=== PATIENT | male | born 1960 | race Caucasian/White ===

== ENCOUNTER 2016-11-05 10:57 | Emergency (ER) | payer MEDICAID ==
[~2016-11-05] VITALS: Ht 177.8 cm; Wt 65.8 kg
[~2016-11-05 10:57] MED LIST: AMIT PO; DIA2T; GABA300C; HYDR-3682; IBUP800T41; LAM100T OR; OME20GT; RISP1TAB60 PO; VENL25TA2 PO
[2016-11-05 11:58] LABS: Basophils # (auto) 0 uL; Basophils % (auto) 0.5 % (0.0-2.0); CONDITION Y; Eosinophils # (auto) 0.2 uL; Eosinophils % (auto) 3.1 % (0.0-7.0); Hematocrit 47.6 % (41.0-53.0); Hemoglobin 16.1 g/dL (13.5-17.5); Lymphocytes # (auto) 2.7 uL; Lymphocytes % (auto) 37.1 % (10.0-50.0); Mean Corpuscular Hemoglobin 33.3 pg (28.0-32.0); Mean Corpuscular Hgb Conc. 33.8 g/dL (32.0-36.0); Mean Corpuscular Volume 98.4 fL (80.0-100.0); Mean Platelet Volume 8.2 fL (7.4-10.4); Monocytes # (auto) 0.5 uL; Monocytes % (auto) 6.9 % (0.0-12.0); Neutrophils # (auto) 3.8 uL; Neutrophils % (auto) 52.4 % (37.0-80.0); Platelet Count (auto) 172 10^3/uL (140-450); Red Cell Distribution Width 13.2 % (11.6-16.0); White Blood Cell 7.2 10^3/uL (4.4-10.8)
[2016-11-05 12:37] LABS: BUN/Creatinine Ratio 18.3; Potassium 4.3 mmol/L (3.5-5.1)
[2016-11-05] MEDS ORDERED: ALUM & MAG HYDROX-SIMETH LIQ(MAALOX) 30 ML PO ONE (16:15)
[2016-11-05 17:08] VITALS: BP 99/65
== END 2016-11-05 17:14 | disposition home or self-care (01) ==
LOC: ER 10:57
DX: K20.9 Esophagitis, unspecified (principal); F17.210 Nicotine dependence, cigarettes, uncomplicated; F12.10 Cannabis abuse, uncomplicated; M19.90 Unspecified osteoarthritis, unspecified site; Z88.3 Allergy status to other anti-infective agents; Z90.89 Acquired absence of other organs
CPT/HCPCS: 36415; 74176; 80048; 82150; 83690; 85025; 93005

== ENCOUNTER 2017-03-29 15:43 | Emergency (ER) | payer MEDICAID ==
[~2017-03-29] VITALS: Ht 177.8 cm; Wt 65.8 kg
[2017-03-29 15:52] VITALS: BP 113/75
[2017-03-29] MEDS ORDERED: traMADol HCL 50 MG TAB PO ONE (16:45)
== END 2017-03-29 16:17 | disposition home or self-care (01) ==
LOC: ER 15:43
DX: L03.311 Cellulitis of abdominal wall (principal); F17.210 Nicotine dependence, cigarettes, uncomplicated

== ENCOUNTER 2017-04-01 15:42 | Emergency (ER) | payer MEDICAID ==
[~2017-04-01] VITALS: Ht 177.8 cm; Wt 65.8 kg
[2017-04-01 16:02] VITALS: BP 121/79
== END 2017-04-01 16:18 | disposition home or self-care (01) ==
LOC: ER 15:44
DX: L03.311 Cellulitis of abdominal wall (principal); F17.210 Nicotine dependence, cigarettes, uncomplicated

== ENCOUNTER 2017-06-28 14:45 | Emergency (ER) | payer MEDICAID ==
[~2017-06-28] VITALS: Ht 177.8 cm; Wt 65.8 kg
[2017-06-28 15:05] VITALS: BP 97/68
== END 2017-06-28 17:20 | disposition home or self-care (01) ==
LOC: ER 14:45
DX: M79.675 Pain in left toe(s) (principal); M19.90 Unspecified osteoarthritis, unspecified site; F17.210 Nicotine dependence, cigarettes, uncomplicated; Z90.49 Acquired absence of other specified parts of digestive tract; Z88.8 Allergy status to other drugs, medicaments and biological substances; Z79.899 Other long term (current) drug therapy

== ENCOUNTER 2018-01-21 14:05 | Emergency (ER) | payer MEDICAID ==
[~2018-01-21] VITALS: Ht 177.8 cm; Wt 59.0 kg
[2018-01-21] MEDS ORDERED: SODIUM CHLORIDE 0.9% 1,000 ML IVB ONE (14:22)
[2018-01-21] MEDS ORDERED: PANTOPRAZOLE 40 MG/10 ML VIAL IV STA (14:22)
[2018-01-21] MEDS ORDERED: ONDANSETRON HCL 4 MG/2 ML VIAL IV ONE (14:30)
[2018-01-21] MEDS ORDERED: MORPHINE SULFATE 4 MG/ML SYR/VIAL IV ONE (14:30)
[2018-01-21 16:25] LABS: Basophils # (auto) 0 uL; Basophils % (auto) 0.4 % (0.0-2.0); Eosinophils # (auto) 0.1 uL; Hemoglobin 16.3 g/dL (13.5-17.5); Lymphocytes # (auto) 2.8 uL; Nucleated Red Blood Cells % 0.1 %; Red Blood Cells 4.68 10^6/uL (4.5-5.90)
[2018-01-21 16:28] LABS: Eosinophils % (auto) 1.2 % (0.0-7.0); Hematocrit 46.2 % (41.0-53.0); Lymphocytes % (auto) 32.3 % (10.0-50.0); Mean Corpuscular Hemoglobin 34.9 pg (28.0-32.0); Mean Corpuscular Hgb Conc. 35.3 g/dL (32.0-36.0); Mean Corpuscular Volume 98.8 fL (80.0-100.0); Monocytes # (auto) 0.5 uL; Monocytes % (auto) 6.2 % (0.0-12.0); Neutrophils # (auto) 5.2 uL; Neutrophils % (auto) 59.9 % (37.0-80.0); Platelet Count (auto) 168 10^3/uL (140-450); Red Cell Distribution Width 12.5 % (11.8-14.3); White Blood Cell 8.6 10^3/uL (4.4-10.8)
[2018-01-21 16:34] LABS: Potassium 3.8 mmol/L (3.5-5.1)
[2018-01-21 16:38] LABS: BUN/Creatinine Ratio 23.5; Calcium 8.5 mg/dL (8.5-10.1)
[2018-01-21 16:41] LABS: Bilirubin, Total 0.7 mg/dL (0.2-1.0); Total Protein 7.9 g/dL (6.4-8.2)
[2018-01-21 18:09] VITALS: BP 123/68
== END 2018-01-21 17:01 | disposition home or self-care (01) ==
LOC: ER 14:05
DX: F12.188 Cannabis abuse with other cannabis-induced disorder (principal); R11.10 Vomiting, unspecified; M19.90 Unspecified osteoarthritis, unspecified site; F17.210 Nicotine dependence, cigarettes, uncomplicated; Z79.899 Other long term (current) drug therapy
CPT/HCPCS: 36415; 80053; 82150; 83690; 85025; 93005; 94761

== ENCOUNTER 2018-10-19 19:46 | Inpatient (IN) | payer MEDICAID | END 2018-10-23 15:35 | disposition home or self-care (01) | LOC: TELE 10-20 02:26 → TELE-WESTW 10-21 14:41 → DOU IN ICU 10-20 13:14 → ER 19:46 | DX: K66.1 Hemoperitoneum (principal); K70.30 Alcoholic cirrhosis of liver without ascites; R19.09 Other intra-abdominal and pelvic swelling, mass and lump ==

== ENCOUNTER 2019-01-20 06:35 | Emergency (ER) | payer MEDICAID ==
[~2019-01-20] VITALS: Ht 177.8 cm; Wt 65.8 kg
[2019-01-20 06:50] VITALS: BP 98/66
[2019-01-20] MEDS ORDERED: KETOROLAC TROMETH 60MG/2ML VIAL IM ONE (08:00)
== END 2019-01-20 08:11 | disposition home or self-care (01) ==
LOC: ER 06:40
DX: M70.61 Trochanteric bursitis, right hip (principal); F17.210 Nicotine dependence, cigarettes, uncomplicated; F12.10 Cannabis abuse, uncomplicated; Z88.1 Allergy status to other antibiotic agents; Z79.899 Other long term (current) drug therapy; Y93.H3 Activity, building and construction
CPT/HCPCS: 73502; 96372; 99283; J1885

== ENCOUNTER 2020-10-21 07:00 | Emergency (ER) | payer MEDICAID ==
[~2020-10-21] VITALS: Ht 177.8 cm; Wt 61.2 kg
[~2020-10-21 07:00] MED LIST changes: -AMIT PO; +AMIT10TA8 PO; +RISP1TAB33 PO; -RISP1TAB60 PO; -VENL25TA2 PO; +VENL25TA33 PO
[2020-10-21] MEDS ORDERED: METHOCARBAMOL 500 MG TAB PO ONE (08:15)
[2020-10-21 09:54] VITALS: BP 118/78
== END 2020-10-21 09:58 | disposition home or self-care (01) ==
LOC: ER 07:00
DX: M54.12 Radiculopathy, cervical region (principal); F17.210 Nicotine dependence, cigarettes, uncomplicated; F12.10 Cannabis abuse, uncomplicated; Z88.6 Allergy status to analgesic agent
CPT/HCPCS: 72040

== ENCOUNTER 2020-10-30 20:10 | Emergency (ER) | payer MEDICAID ==
[~2020-10-30] VITALS: Ht 177.8 cm; Wt 65.8 kg
[2020-10-30] MEDS ORDERED: ONDANSETRON HCL 4 MG/2 ML VIAL IV ONE (20:45)
[2020-10-30] MEDS ORDERED: SODIUM CHLORIDE 0.9% 2,000 ML IV ONE (20:45)
[2020-10-30 21:15] LABS: Basophils # (auto) 0.1 10 ^3/uL (0-0.2); Eosinophils # (auto) 0.1 10 ^3/uL (0-0.8); Lymphocytes # (auto) 2.1 10 ^3/uL (0.4-5.4); Monocytes # (auto) 1.1 10 ^3/uL (0-1.3); Neutrophils # (auto) 9.7 10 ^3/uL (1.6-8.6); Red Cell Distribution Width 12.7 % (11.8-14.3); White Blood Cell 13.1 10^3/uL (4.4-10.8)
[2020-10-30 21:17] LABS: Basophils % (auto) 0.7 % (0.0-2.0); Eosinophils % (auto) 0.8 % (0.0-7.0); Hemoglobin 17.5 g/dL (13.5-17.5); Lymphocytes % (auto) 15.9 % (10.0-50.0); Mean Corpuscular Hemoglobin 34.5 pg (28.0-32.0); Mean Corpuscular Hgb Conc. 35.1 g/dL (32.0-36.0); Mean Corpuscular Volume 98.5 fL (80.0-100.0); Monocytes % (auto) 8.5 % (0.0-12.0); Neutrophils % (auto) 74.1 % (37.0-80.0); Platelet Count (auto) 239 10^3/uL (140-450); Red Blood Cells 5.08 10^6/uL (4.5-5.90)
[2020-10-30 21:28] LABS: Albumin 4.7 g/dL (3.4-5.0); Amylase 64 U/L (25-115); Anion Gap 10 (5-15); Blood Urea Nitrogen 29 mg/dL (7-18); Calcium 9.8 mg/dL (8.5-10.1); Carbon Dioxide 23 mmol/L (21-32); Chloride 101 mmol/L (98-107); GFR African American 75 mL/min; GFR Non-African American 62 mL/min; Glucose 78 mg/dL (74-106); Lipase 62 U/L (73-393); Magnesium 2.2 mg/dL (1.6-2.6); Potassium 4.6 mmol/L (3.5-5.1); Sodium 134 mmol/L (136-145)
[2020-10-30 21:34] LABS: Alanine Aminotransferase 43 U/L (16-61); Alkaline Phosphatase 81 U/L (45-117); Aspartate Aminotransferase 42 U/L (15-37); Bilirubin, Total 0.8 mg/dL (0.2-1.0); Total Protein 9.1 g/dL (6.4-8.2)
[2020-10-31 03:29] VITALS: BP 132/84
== END 2020-10-31 03:32 | disposition home or self-care (01) ==
LOC: ER 20:11
DX: T67.5XXA Heat exhaustion, unspecified, initial encounter (principal); E86.0 Dehydration; R10.84 Generalized abdominal pain; F17.210 Nicotine dependence, cigarettes, uncomplicated; F10.20 Alcohol dependence, uncomplicated; Z79.899 Other long term (current) drug therapy; Z88.1 Allergy status to other antibiotic agents; Z88.8 Allergy status to other drugs, medicaments and biological substances; Y90.9 Presence of alcohol in blood, level not specified; X58.XXXA Exposure to other specified factors, initial encounter; Y93.89 Activity, other specified; Y92.89 Other specified places as the place of occurrence of the external cause; Y99.8 Other external cause status
CPT/HCPCS: 36415; 80053; 82150; 83690; 83735; 84484; 85025; 93005; 96361; 96374; 99284; J2405; J7030

== ENCOUNTER 2021-06-08 15:36 | Emergency (ER) | payer MEDICAID ==
[~2021-06-08] VITALS: Ht 177.8 cm; Wt 57.6 kg
[2021-06-08 16:13] LABS: Urine WBC None Seen /hpf (0 - 3)
[2021-06-08 16:33] LABS: Urine Bacteria NONE SEEN /hpf (None Seen); Urine Blood Negative /uL (Negative); Urine Specific Gravity 1.023 (1.001-1.035)
[2021-06-08 17:46] LABS: Hemoglobin 17.4 g/dL (13.5-17.5); Red Cell Distribution Width 12.2 % (11.8-14.3)
[2021-06-08 17:51] LABS: Basophils # (auto) 0.1 10 ^3/uL (0-0.2); Basophils % (auto) 0.7 % (0.0-2.0); Eosinophils # (auto) 0.1 10 ^3/uL (0-0.8); Eosinophils % (auto) 1.4 % (0.0-7.0); Hematocrit 49.9 % (41.0-53.0); Lymphocytes # (auto) 2.2 10 ^3/uL (0.4-5.4); Lymphocytes % (auto) 21.9 % (10.0-50.0); Mean Corpuscular Hemoglobin 33.6 pg (28.0-32.0); Mean Corpuscular Hgb Conc. 34.9 g/dL (32.0-36.0); Mean Corpuscular Volume 96.3 fL (80.0-100.0); Monocytes # (auto) 1.1 10 ^3/uL (0-1.3); Monocytes % (auto) 11.4 % (0.0-12.0); Neutrophils # (auto) 6.4 10 ^3/uL (1.6-8.6); Neutrophils % (auto) 64.6 % (37.0-80.0); Red Blood Cells 5.18 10^6/uL (4.5-5.90); White Blood Cell 9.9 10^3/uL (4.4-10.8)
[2021-06-08 17:56] LABS: Albumin 3.9 g/dL (3.4-5.0); Calcium 9.3 mg/dL (8.5-10.1); Potassium 4.6 mmol/L (3.5-5.1)
[2021-06-08 18:01] LABS: Bilirubin, Total 0.2 mg/dL (0.2-1.0); Total Protein 7.6 g/dL (6.4-8.2)
[2021-06-08] MEDS ORDERED: HYDR-4902 PO (19:14)
[2021-06-08 20:00] VITALS: BP 133/84
== END 2021-06-08 20:01 | disposition home or self-care (01) ==
LOC: ER 15:40
DX: K82.9 Disease of gallbladder, unspecified (principal); R16.0 Hepatomegaly, not elsewhere classified; F17.210 Nicotine dependence, cigarettes, uncomplicated; J44.9 Chronic obstructive pulmonary disease, unspecified; Z90.89 Acquired absence of other organs; Z79.1 Long term (current) use of non-steroidal anti-inflammatories (NSAID); Z79.899 Other long term (current) drug therapy; Z88.8 Allergy status to other drugs, medicaments and biological substances
CPT/HCPCS: 36415; 71046; 74176; 80053; 81001; 83690; 84484; 85025; 93005

== ENCOUNTER 2022-04-22 12:44 | Inpatient (IN) | payer MEDICAID ==
[~2022-04-22] VITALS: Ht 154.9 cm; Wt 53.0 kg
[~2022-04-22 12:44] MED LIST changes: +HYDR-4902 PO
[2022-04-22 14:15] LABS: Urine Bacteria FEW /hpf (None Seen); Urine Blood Negative /uL (Negative); Urine Specific Gravity 1.018 (1.001-1.035); Urine Sperm PRESENT /hpf (None Seen); Urine WBC 1 /hpf (0 - 3)
[2022-04-22 14:33] LABS: Basophils # (auto) 0.1 10 ^3/uL (0-0.2); Basophils % (auto) 0.6 % (0.0-2.0); Eosinophils # (auto) 0 10 ^3/uL (0-0.8); Eosinophils % (auto) 0.2 % (0.0-7.0); Hematocrit 47.6 % (41.0-53.0); Hemoglobin 15.9 g/dL (13.5-17.5); Lymphocytes # (auto) 1.5 10 ^3/uL (0.4-5.4); Lymphocytes % (auto) 13.6 % (10.0-50.0); Mean Corpuscular Hemoglobin 31.1 pg (28.0-32.0); Mean Corpuscular Hgb Conc. 33.3 g/dL (32.0-36.0); Mean Corpuscular Volume 93.3 fL (80.0-100.0); Monocytes # (auto) 1.4 10 ^3/uL (0-1.3); Monocytes % (auto) 12.6 % (0.0-12.0); Neutrophils # (auto) 8.3 10 ^3/uL (1.6-8.6); Red Cell Distribution Width 12.6 % (11.8-14.3); White Blood Cell 11.3 10^3/uL (4.4-10.8)
[2022-04-22 14:53] LABS: Albumin 3.2 g/dL (3.4-5.0); BUN/Creatinine Ratio 14.6; Calcium 8.8 mg/dL (8.5-10.1); Potassium 4.1 mmol/L (3.5-5.1)
[2022-04-22 15:05] LABS: Bilirubin, Total 0.8 mg/dL (0.2-1.0); Total Protein 7.4 g/dL (6.4-8.2)
[2022-04-22] MEDS ORDERED: LORazepam 2MG/ML-1ML VIAL IV PRN (17:30)
[2022-04-22] MEDS ORDERED: cefTRIAXone 1GM/50ML D5W 50 ML IV ONE (17:30)
[2022-04-22] MEDS ORDERED: PANTOPRAZOLE 40 MG/10 ML VIAL INJ IV ONE (17:30)
[2022-04-22] MEDS ORDERED: metroNIDAZOLE 500MG/100ML 100 ML IV ONE (17:30)
[2022-04-22] MEDS ORDERED: MORPHINE SULFATE INJ 2 MG/ml SYRG IV PRN (17:30)
[2022-04-22 18:18] LABS: Cholesterol 100 mg/dL (< 200); Triglycerides 40 mg/dL (< 150)
[2022-04-22 18:20] LABS: HDL Cholesterol 50 mg/dL (40-59); LDL Cholesterol 41 mg/dL (< 100)
[2022-04-22 18:22] LABS: INR 1.12 (0.9-1.15)
[2022-04-22] MEDS: SODIUM CHLORIDE 0.9% 1,000 ML IV SCH (18:31)
[2022-04-22] MEDS: ONDANSETRON HCL 4 MG/2 ML VIAL IV PRN (19:32)
[2022-04-22] MEDS: metroNIDAZOLE 500MG/100ML 100 ML IV SCH (20:00)
[2022-04-22 20:01] LABS: Amphetamine Screen, Urine NEGATIVE (NEGATIVE); Barbiturate Scree,Urine NEGATIVE (NEGATIVE); Benzodiazephine Screen, Urine NEGATIVE (NEGATIVE); Cannabinoid Screen, Urine POSITIVE (NEGATIVE); Cocaine Screen, Urine NEGATIVE (NEGATIVE); Opiate Scree,Urine NEGATIVE (NEGATIVE); Phencyclidine Screen, Urine NEGATIVE (NEGATIVE)
[2022-04-23 03:47] LABS: Basophils # (auto) 0.1 10 ^3/uL (0-0.2); Basophils % (auto) 0.7 % (0.0-2.0); Eosinophils # (auto) 0.1 10 ^3/uL (0-0.8); Eosinophils % (auto) 0.8 % (0.0-7.0); Hematocrit 40.4 % (41.0-53.0); Hemoglobin 13.2 g/dL (13.5-17.5); Lymphocytes # (auto) 1.2 10 ^3/uL (0.4-5.4); Lymphocytes % (auto) 11.9 % (10.0-50.0); Mean Corpuscular Hemoglobin 30.7 pg (28.0-32.0); Mean Corpuscular Hgb Conc. 32.7 g/dL (32.0-36.0); Monocytes # (auto) 1.6 10 ^3/uL (0-1.3); Monocytes % (auto) 15.7 % (0.0-12.0); Neutrophils # (auto) 7.3 10 ^3/uL (1.6-8.6); Neutrophils % (auto) 70.9 % (37.0-80.0); Red Cell Distribution Width 12.5 % (11.8-14.3); White Blood Cell 10.4 10^3/uL (4.4-10.8)
[2022-04-23 03:58] LABS: Albumin 2.5 g/dL (3.4-5.0); BUN/Creatinine Ratio 20.4; Calcium 7.9 mg/dL (8.5-10.1); Potassium 4.3 mmol/L (3.5-5.1)
[2022-04-23 04:06] LABS: Bilirubin, Total 0.6 mg/dL (0.2-1.0); Total Protein 6.4 g/dL (6.4-8.2)
[2022-04-23] MEDS: metroNIDAZOLE 500MG/100ML 100 ML IV SCH ×3 (05:20→20:40)
[2022-04-23] MEDS: ONDANSETRON HCL 4 MG/2 ML VIAL IV PRN (05:28)
[2022-04-23] MEDS: SODIUM CHLORIDE 0.9% 1,000 ML IV SCH ×2 (09:00→22:00)
[2022-04-23] MEDS: cefTRIAXone 1GM/50ML D5W 50 ML IV SCH (09:15)
[2022-04-23] MEDS: PANTOPRAZOLE 40 MG/10 ML VIAL INJ IV SCH (09:55)
[2022-04-23] MEDS: NICOTINE 7MG/24HR TOPICAL PATCH TD SCH (09:56)
[2022-04-23] MEDS ORDERED: HYDROcodone-ACET 5/325MG TAB PO PRN (13:00)
[2022-04-23 15:53] VITALS: BP 108/56
[2022-04-23 17:00] VITALS: BP 108/56
[2022-04-23 18:22] VITALS: BP 108/56
[2022-04-23] MEDS ORDERED: MORPHINE SULFATE INJ 2 MG/ml SYRG IV PRN (19:30)
[2022-04-23 20:00] VITALS: BP 99/68
[2022-04-23 22:00] VITALS: BP 99/68
[2022-04-24] MEDS: metroNIDAZOLE 500MG/100ML 100 ML IV SCH ×3 (03:54→16:15)
[2022-04-24] MEDS: HYDROcodone-ACET 5/325MG TAB PO PRN ×2 (04:18→08:59)
[2022-04-24 05:00] VITALS: BP 114/67
[2022-04-24 08:00] VITALS: BP 100/59
[2022-04-24] MEDS: NICOTINE 7MG/24HR TOPICAL PATCH TD SCH (08:58)
[2022-04-24] MEDS: PANTOPRAZOLE 40 MG/10 ML VIAL INJ IV SCH (08:59)
[2022-04-24 09:00] VITALS: BP 100/59
[2022-04-24] MEDS: cefTRIAXone 1GM/50ML D5W 50 ML IV SCH (09:04)
[2022-04-24] MEDS: SODIUM CHLORIDE 0.9% 1,000 ML IV SCH (09:30)
[2022-04-24 13:00] VITALS: BP 113/72
[2022-04-24] MEDS: HYDROcodone-ACET 10/325MG TAB PO PRN ×4 (13:02→16:15)
[2022-04-24] MEDS ORDERED: HYDR-4798 PO (15:35)
[2022-04-24 15:44] VITALS: BP 117/67
== END 2022-04-24 18:29 | disposition home or self-care (01) ==
LOC: ER 12:44 → OVERFLOW 17:19 → WEST WING 04-23 15:03
PROVIDERS: ADMIT Registered Nurse; ATTEND Internal Medicine
DX: K74.60 Unspecified cirrhosis of liver (principal); C22.0 Liver cell carcinoma; R16.0 Hepatomegaly, not elsewhere classified; E78.5 Hyperlipidemia, unspecified; K52.9 Noninfective gastroenteritis and colitis, unspecified; F10.10 Alcohol abuse, uncomplicated; R10.9 Unspecified abdominal pain; Z20.822 Contact with and (suspected) exposure to COVID-19; J43.9 Emphysema, unspecified; Z88.8 Allergy status to other drugs, medicaments and biological substances; Z72.0 Tobacco use; Z71.6 Tobacco abuse counseling
CPT/HCPCS: 36415; 71045; 74176; 80053; 80061; 80307; 80320; 81001; 82105; 83036; 83615; 83690; 84443; 85025; 85610; 85730; 87040; 87086; 87426; C9113; G0378; J0696; J2405; J3490

== ENCOUNTER 2022-06-11 13:02 | Inpatient (IN) | payer MEDICAID ==
[~2022-06-11] VITALS: Ht 177.8 cm; Wt 60.1 kg
[2022-06-11] VITALS (10 sets, daily range): BP systolic 89–116; BP diastolic 50–70
[~2022-06-11 13:02] MED LIST changes: +HYDR-4798 PO; -HYDR-4902 PO
[2022-06-11 13:57] LABS: Basophils # (auto) 0 10 ^3/uL (0-0.2); Basophils % (auto) 0.4 % (0.0-2.0); Eosinophils # (auto) 0.1 10 ^3/uL (0-0.8); Eosinophils % (auto) 0.9 % (0.0-7.0); Hematocrit 18.4 % (41.0-53.0); Lymphocytes # (auto) 1.9 10 ^3/uL (0.4-5.4); Mean Corpuscular Hemoglobin 25.6 pg (28.0-32.0); Mean Corpuscular Hgb Conc. 28.8 g/dL (32.0-36.0); Monocytes # (auto) 0.8 10 ^3/uL (0-1.3); Monocytes % (auto) 6.8 % (0.0-12.0); Neutrophils # (auto) 8.5 10 ^3/uL (1.6-8.6); Neutrophils % (auto) 74.9 % (37.0-80.0); Nucleated Red Blood Cells % 0.1 %; Red Blood Cells 2.06 10^6/uL (4.5-5.90); White Blood Cell 11.4 10^3/uL (4.4-10.8)
[2022-06-11 14:00] LABS: Hemoglobin 5.3 g/dL (13.5-17.5)
[2022-06-11 14:22] LABS: Albumin 2.8 g/dL (3.4-5.0); BUN/Creatinine Ratio 27.7; Bilirubin, Total 0.2 mg/dL (0.2-1.0); Calcium 8.3 mg/dL (8.5-10.1); Potassium 4.5 mmol/L (3.5-5.1); Total Protein 6.2 g/dL (6.4-8.2)
[2022-06-11] MEDS ORDERED: SODIUM CHLORIDE 0.9% 500 ML IV ONE (16:45)
[2022-06-11] MEDS ORDERED: MORPHINE SULFATE INJ 2 MG/ml SYRG IV PRN (16:45)
[2022-06-11] MEDS ORDERED: IPRATROPIUM BROM 0.5 MG/2.5ML INH SOL NEB PRN (16:45)
[2022-06-11] MEDS ORDERED: NITROGLYCERIN 0.4 MG SL TAB SL PRN (16:45)
[2022-06-11] MEDS ORDERED: ALBUTEROL SULF 2.5 MG/0.5ML(0.5%) NEB SOLN NEB PRN (16:45)
[2022-06-11] MEDS: ONDANSETRON HCL 4 MG/2 ML VIAL IV PRN (17:22)
[2022-06-11] MEDS: MORPHINE SULFATE INJ 2 MG/ml SYRG IV PRN (17:23)
[2022-06-11] MEDS ORDERED: MORPHINE SULFATE 4 MG/ML SYR/VIAL IV ONE (19:45)
[2022-06-11] MEDS ORDERED: PROMETHAZINE HCL 25 MG/ML 1ML IV ONE (19:45)
[2022-06-11] MEDS: SUCRALFATE 1 GM/10 ML ORAL SUSP GT SCH (20:12)
[2022-06-12] MEDS: ONDANSETRON HCL 4 MG/2 ML VIAL IV PRN ×2 (00:29→04:59)
[2022-06-12] MEDS: SUCRALFATE 1 GM/10 ML ORAL SUSP GT SCH ×5 (00:29→23:21)
[2022-06-12] MEDS: MORPHINE SULFATE INJ 2 MG/ml SYRG IV PRN ×3 (00:36→20:01)
[2022-06-12 00:37] LABS: Hematocrit 30.6 % (41.0-53.0); Hemoglobin 9.3 g/dL (13.5-17.5)
[2022-06-12] MEDS: GABAPENTIN 300 MG CAP PO SCH ×3 (00:37→23:21)
[2022-06-12 06:33] LABS: Potassium 4.2 mmol/L (3.5-5.1)
[2022-06-12 06:39] LABS: Albumin 2.4 g/dL (3.4-5.0); Bilirubin, Total 0.4 mg/dL (0.2-1.0); Calcium 7.4 mg/dL (8.5-10.1); Total Protein 5.5 g/dL (6.4-8.2)
[2022-06-12 06:44] LABS: Basophils # (auto) 0.1 10 ^3/uL (0-0.2); Basophils % (auto) 0.5 % (0.0-2.0); Eosinophils # (auto) 0.1 10 ^3/uL (0-0.8); Eosinophils % (auto) 1.1 % (0.0-7.0); Hematocrit 29.3 % (41.0-53.0); Hemoglobin 9.1 g/dL (13.5-17.5); Lymphocytes # (auto) 1.6 10 ^3/uL (0.4-5.4); Lymphocytes % (auto) 13.2 % (10.0-50.0); Mean Corpuscular Hemoglobin 27.1 pg (28.0-32.0); Mean Corpuscular Hgb Conc. 30.9 g/dL (32.0-36.0); Mean Corpuscular Volume 87.4 fL (80.0-100.0); Monocytes # (auto) 0.9 10 ^3/uL (0-1.3); Monocytes % (auto) 7.9 % (0.0-12.0); Neutrophils # (auto) 9.2 10 ^3/uL (1.6-8.6); Neutrophils % (auto) 77.3 % (37.0-80.0); Nucleated Red Blood Cells % 0.1 %; Red Blood Cells 3.35 10^6/uL (4.5-5.90); Red Cell Distribution Width 17.3 % (11.8-14.3); White Blood Cell 11.9 10^3/uL (4.4-10.8)
[2022-06-12] MEDS ORDERED: OCTREOTIDE ACETATE 100 MCG in SODIUM CHL 0.9% 50 ML IV ONE (10:30)
[2022-06-12] MEDS ORDERED: OCTREOTIDE ACETATE 500 MCG in SODIUM CHL 0.9% 99 ML IV SCH (10:30)
[2022-06-12 10:45] LABS: INR 1.03 (0.9-1.15)
[2022-06-12] MEDS: lamoTRIgine 100 MG TAB PO SCH (11:23)
[2022-06-12] MEDS: risperiDONE 1 MG TAB PO SCH (11:23)
[2022-06-12] MEDS: ALBUMIN 25% 100 ML IV SCH ×4 (12:00→23:00)
[2022-06-12] MEDS: PANTOPRAZOLE 40 MG/10 ML VIAL INJ IV SCH ×2 (13:26→23:21)
[2022-06-12] MEDS: SODIUM CHLORIDE 0.9% 1,000 ML IV SCH ×2 (13:52→23:20)
[2022-06-12] MEDS: CEFTRIAXONE SODIUM 2 GM in D5W 5% 50 ML IV SCH (15:15)
[2022-06-12] MEDS: VENLAFAXINE HCL 25MG TABLET PO SCH (15:22)
[2022-06-12 22:03] VITALS: BP 96/64
[2022-06-13] MEDS ORDERED: OCTREOTIDE ACETATE 500 MCG in SODIUM CHL 0.9% 99 ML IV SCH ×2
[2022-06-13] MEDS: MORPHINE SULFATE INJ 2 MG/ml SYRG IV PRN ×2 (00:04→06:43)
[2022-06-13 00:13] VITALS: BP 107/69
[2022-06-13] MEDS ORDERED: DOCU100C10 PO (02:08)
[2022-06-13] MEDS ORDERED: HYDR-4798 (02:08)
[2022-06-13] MEDS ORDERED: NICO21DI37 TOP (02:08)
[2022-06-13 05:00] VITALS: BP 105/64
[2022-06-13] MEDS: SUCRALFATE 1 GM/10 ML ORAL SUSP GT SCH ×2 (06:24→11:18)
[2022-06-13 07:44] LABS: Basophils # (auto) 0.1 10 ^3/uL (0-0.2); Basophils % (auto) 0.6 % (0.0-2.0); Eosinophils # (auto) 0.3 10 ^3/uL (0-0.8); Eosinophils % (auto) 3.2 % (0.0-7.0); Hematocrit 31.2 % (41.0-53.0); Hemoglobin 9.8 g/dL (13.5-17.5); Lymphocytes # (auto) 1.6 10 ^3/uL (0.4-5.4); Lymphocytes % (auto) 18.1 % (10.0-50.0); Mean Corpuscular Hemoglobin 27.6 pg (28.0-32.0); Mean Corpuscular Hgb Conc. 31.3 g/dL (32.0-36.0); Mean Corpuscular Volume 88.1 fL (80.0-100.0); Monocytes # (auto) 0.9 10 ^3/uL (0-1.3); Monocytes % (auto) 9.4 % (0.0-12.0); Neutrophils # (auto) 6.2 10 ^3/uL (1.6-8.6); Neutrophils % (auto) 68.7 % (37.0-80.0); Nucleated Red Blood Cells % 0.2 %; Red Blood Cells 3.54 10^6/uL (4.5-5.90); Red Cell Distribution Width 17.1 % (11.8-14.3)
[2022-06-13] MEDS: SODIUM CHLORIDE 0.9% 1,000 ML IV SCH (08:14)
[2022-06-13] MEDS: PANTOPRAZOLE 40 MG/10 ML VIAL INJ IV SCH (08:14)
[2022-06-13] MEDS: CEFTRIAXONE SODIUM 2 GM in D5W 5% 50 ML IV SCH (08:14)
[2022-06-13 09:00] VITALS: BP_SYST 129; BP_SYST 84; BP_DIAS 54; BP_DIAS 81
[2022-06-13] MEDS ORDERED: fentaNYL CITRATE 100 MCG/2 ML VL ONE (09:26)
[2022-06-13] MEDS ORDERED: MIDAZOLAM HCL 2MG/2ML 2ml VIAL (1mg/ml) ONE (09:26)
[2022-06-13] MEDS ORDERED: LIDOCAINE VISCOUS 2% 15ML UD ONE (09:27)
[2022-06-13] MEDS ORDERED: PROPOFOL 10 MG/ML 20 ML IV ONE (09:37)
[2022-06-13] MEDS ORDERED: DexAMETHasone SOD PHOS 10MG/1ML VIAL INJ ONE (09:37)
[2022-06-13] MEDS: VENLAFAXINE HCL 25MG TABLET PO SCH (10:00)
[2022-06-13] MEDS: risperiDONE 1 MG TAB PO SCH (11:18)
[2022-06-13] MEDS: GABAPENTIN 300 MG CAP PO SCH (11:18)
[2022-06-13] MEDS: lamoTRIgine 100 MG TAB PO SCH (11:18)
[2022-06-13] MEDS ORDERED: PANT40TA2 PO (12:14)
[2022-06-13] MEDS ORDERED: SUCR1TAB22 OR (12:14)
[2022-06-13 12:19] VITALS: BP 142/88
== END 2022-06-13 13:31 | disposition home or self-care (01) | DRG 241 ==
LOC: ER 13:02 → TELE 16:36 → TELE-CENTR 06-12 20:36
PROVIDERS: ADMIT Nurse Practitioner Acute Care; ATTEND Nurse Practitioner Acute Care
PROC: 30233N1 Transfusion of Nonautologous Red Blood Cells into Peripheral Vein, Percutaneous Approach (ICD-10-PCS; principal; 2022-06-11)
PROC: 0DJ08ZZ Inspection of Upper Intestinal Tract, Via Natural or Artificial Opening Endoscopic (ICD-10-PCS; 2022-06-13)
DX: K29.71 Gastritis, unspecified, with bleeding (principal); R57.1 Hypovolemic shock; Z20.822 Contact with and (suspected) exposure to COVID-19; K26.4 Chronic or unspecified duodenal ulcer with hemorrhage; E43 Unspecified severe protein-calorie malnutrition; D64.9 Anemia, unspecified; F10.20 Alcohol dependence, uncomplicated; F12.90 Cannabis use, unspecified, uncomplicated; F17.210 Nicotine dependence, cigarettes, uncomplicated; J43.9 Emphysema, unspecified; Z85.05 Personal history of malignant neoplasm of liver; Z88.8 Allergy status to other drugs, medicaments and biological substances; Z68.1 Body mass index [BMI] 19.9 or less, adult
CPT/HCPCS: 36415; 36430; 71045; 80053; 84484; 85014; 85018; 85025; 85379; 85610; 86850; 86900; 86901; 86920; 87040; 87426; 96361; 96374; 96375; 99291; C9113; G0378; J0696; J1100; J2250; J2405; J2704; J7060

== ENCOUNTER 2022-08-12 10:52 | Inpatient (IN) | payer MEDICAID ==
[~2022-08-12] VITALS: Ht 177.8 cm; Wt 56.5 kg
[2022-08-12] VITALS (8 sets, daily range): BP systolic 94–111; BP diastolic 58–64
[~2022-08-12 10:52] MED LIST changes: +DOCU100C10 PO; +HYDR-4798; +NICO21DI37 TOP; +PANT40TA2 PO; +SUCR1TAB22 OR
[2022-08-12 11:24] LABS: Eosinophils # (auto) 0 10 ^3/uL (0-0.8)
[2022-08-12 11:26] LABS: Basophils # (auto) 0.3 10 ^3/uL (0-0.2); Basophils % (auto) 0.9 % (0.0-2.0); Hematocrit 19.4 % (41.0-53.0); Lymphocytes # (auto) 1.5 10 ^3/uL (0.4-5.4); Lymphocytes % (auto) 5.1 % (10.0-50.0); Mean Corpuscular Hemoglobin 19.7 pg (28.0-32.0); Mean Corpuscular Hgb Conc. 29.2 g/dL (32.0-36.0); Mean Corpuscular Volume 67.5 fL (80.0-100.0); Monocytes # (auto) 1.6 10 ^3/uL (0-1.3); Monocytes % (auto) 5.4 % (0.0-12.0); Neutrophils # (auto) 26.7 10 ^3/uL (1.6-8.6); Neutrophils % (auto) 88.6 % (37.0-80.0); Red Blood Cells 2.88 10^6/uL (4.5-5.90)
[2022-08-12 11:35] LABS: White Blood Cell 30.1 10^3/uL (4.4-10.8)
[2022-08-12 11:36] LABS: Red Cell Distribution Width 23.3 % (11.8-14.3)
[2022-08-12 11:37] LABS: Hemoglobin 5.7 g/dL (13.5-17.5)
[2022-08-12 11:40] LABS: Albumin 1.9 g/dL (3.4-5.0); Calcium 8.3 mg/dL (8.5-10.1); Potassium 3.8 mmol/L (3.5-5.1)
[2022-08-12 11:43] LABS: BUN/Creatinine Ratio 23.1 (10.0-20.0); Bilirubin, Total 0.4 mg/dL (0.2-1.0)
[2022-08-12] MEDS ORDERED: MORPHINE SULFATE INJ 2 MG/ml SYRG IV PRN (13:15)
[2022-08-12] MEDS ORDERED: PANTOPRAZOLE 40 MG/10 ML VIAL INJ IV ONE (13:15)
[2022-08-12] MEDS ORDERED: ACETAMINOPHEN 325 MG TAB PO PRN (13:15)
[2022-08-12] MEDS ORDERED: NITROGLYCERIN 0.4 MG SL TAB SL PRN (13:15)
[2022-08-12] MEDS ORDERED: HYDROcodone-ACET 10/325MG TAB PO PRN (13:15)
[2022-08-12] MEDS ORDERED: ALBUTEROL SULF 2.5 MG/0.5ML(0.5%) NEB SOLN NEB PRN (13:15)
[2022-08-12 13:21] LABS: % Iron Saturation 3.9 % (20-55)
[2022-08-12] MEDS ORDERED: OCTREOTIDE ACETATE 100 MCG in SODIUM CHL 0.9% 50 ML IV ONE (13:30)
[2022-08-12] MEDS ORDERED: ONDANSETRON HCL 4 MG/2 ML VIAL ONE (14:31)
[2022-08-12] MEDS ORDERED: MORPHINE SULFATE INJ 2 MG/ml SYRG ONE (14:31)
[2022-08-12] MEDS: MORPHINE SULFATE INJ 2 MG/ml SYRG IV PRN ×2 (14:37→17:56)
[2022-08-12] MEDS: ONDANSETRON HCL 4 MG/2 ML VIAL IV PRN ×3 (14:38→19:10)
[2022-08-12] MEDS: OXYCODONE W/ ACETAMINOPHEN 5/325MG TABLET PO PRN (15:07)
[2022-08-12] MEDS: PANTOPRAZOLE 40 MG/10 ML VIAL INJ IV SCH ×2 (15:07→21:44)
[2022-08-12] MEDS: OCTREOTIDE ACETATE 500 MCG in SODIUM CHL 0.9% 99 ML IV SCH ×2 (15:29→23:30)
[2022-08-12] MEDS: SUCRALFATE 1 GM TAB PO SCH ×2 (17:20→21:44)
[2022-08-12 17:22] LABS: Amphetamine Screen, Urine NEGATIVE (NEGATIVE); Barbiturate Scree,Urine NEGATIVE (NEGATIVE); Benzodiazephine Screen, Urine NEGATIVE (NEGATIVE); Cannabinoid Screen, Urine POSITIVE (NEGATIVE); Cocaine Screen, Urine NEGATIVE (NEGATIVE); Phencyclidine Screen, Urine NEGATIVE (NEGATIVE)
[2022-08-12 17:29] LABS: Opiate Scree,Urine POSITIVE (NEGATIVE)
[2022-08-12] MEDS ORDERED: HYDROmorphone HCL 2 MG/ML VL/or syr IV PRN (19:45)
[2022-08-12] MEDS: HYDROmorphone HCL 2 MG/ML VL/or syr IV PRN (20:47)
[2022-08-12] MEDS: DOCUSATE SOD 100 MG CAP PO SCH (21:44)
[2022-08-12] MEDS: risperiDONE 1 MG TAB PO SCH (21:44)
[2022-08-12 21:58] LABS: Hemoglobin 8.1 g/dL (13.5-17.5)
[2022-08-12 21:59] LABS: Hematocrit 26.8 % (41.0-53.0); Mean Corpuscular Hemoglobin 22.1 pg (28.0-32.0); Mean Corpuscular Hgb Conc. 30.2 g/dL (32.0-36.0); Mean Corpuscular Volume 73.3 fL (80.0-100.0); Red Blood Cells 3.65 10^6/uL (4.5-5.90); White Blood Cell 27.2 10^3/uL (4.4-10.8)
[2022-08-12 22:00] LABS: Red Cell Distribution Width 23.5 % (11.8-14.3)
[2022-08-12 22:02] LABS: Basophils % (manual) 0 (0.0-2.0); Blast Cells 0; Eosinophils % (manual) 0 (0-7); Metamyelocytes % 0; Myelocytes % 0; Promyelocytes % 0; Reactive Lymphocytes 0
[2022-08-12 22:52] LABS: Band Neutrophils % (manual) 6; Lymphocytes % (manual) 4 (10.0-50.0); Monocytes % (manual) 4 (0-12)
[2022-08-13] VITALS (7 sets, daily range): BP systolic 107–127; BP diastolic 58–75
[2022-08-13 00:43] LABS: Eosinophils # (auto) 0 10 ^3/uL (0-0.8); Lymphocytes # (auto) 1.7 10 ^3/uL (0.4-5.4); Monocytes # (auto) 2.2 10 ^3/uL (0-1.3)
[2022-08-13 00:45] LABS: Basophils # (auto) 0.1 10 ^3/uL (0-0.2); Basophils % (auto) 0.2 % (0.0-2.0); Eosinophils % (auto) 0.1 % (0.0-7.0); Hematocrit 25.2 % (41.0-53.0); Lymphocytes % (auto) 5.7 % (10.0-50.0); Mean Corpuscular Hemoglobin 22.3 pg (28.0-32.0); Mean Corpuscular Hgb Conc. 31.6 g/dL (32.0-36.0); Mean Corpuscular Volume 70.6 fL (80.0-100.0); Monocytes % (auto) 7.3 % (0.0-12.0); Neutrophils # (auto) 26.7 10 ^3/uL (1.6-8.6); Neutrophils % (auto) 86.7 % (37.0-80.0); Nucleated Red Blood Cells % 0.2 %; Red Blood Cells 3.57 10^6/uL (4.5-5.90)
[2022-08-13 00:49] LABS: Red Cell Distribution Width 23.4 % (11.8-14.3); White Blood Cell 30.7 10^3/uL (4.4-10.8)
[2022-08-13] MEDS: HYDROmorphone HCL 2 MG/ML VL/or syr IV PRN ×5 (01:20→16:55)
[2022-08-13] MEDS: ONDANSETRON HCL 4 MG/2 ML VIAL IV PRN ×2 (01:20→05:28)
[2022-08-13] MEDS: TEMAZEPAM 15 MG CAP PO PRN ×2 (01:31→22:00)
[2022-08-13] MEDS ORDERED: ALBU108A5 INH (03:23)
[2022-08-13] MEDS ORDERED: OXYC7.5T88 (03:23)
[2022-08-13] MEDS: SUCRALFATE 1 GM TAB PO SCH ×4 (06:03→21:52)
[2022-08-13 06:34] LABS: Hemoglobin 7.6 g/dL (13.5-17.5); Mean Corpuscular Hgb Conc. 31.5 g/dL (32.0-36.0)
[2022-08-13 06:36] LABS: Mean Corpuscular Hemoglobin 22.7 pg (28.0-32.0); Red Blood Cells 3.34 10^6/uL (4.5-5.90); White Blood Cell 26.9 10^3/uL (4.4-10.8)
[2022-08-13 06:47] LABS: Potassium 4.3 mmol/L (3.5-5.1)
[2022-08-13 06:53] LABS: Albumin 1.8 g/dL (3.4-5.0); BUN/Creatinine Ratio 24.1 (10.0-20.0); Bilirubin, Total 1.2 mg/dL (0.2-1.0); Calcium 7.9 mg/dL (8.5-10.1); Total Protein 6.5 g/dL (6.4-8.2)
[2022-08-13 06:55] LABS: Basophils % (manual) 0 (0.0-2.0); Blast Cells 0; Eosinophils % (manual) 0 (0-7); Metamyelocytes % 0; Myelocytes % 0; Promyelocytes % 0; Reactive Lymphocytes 0
[2022-08-13 07:52] LABS: Band Neutrophils % (manual) 20; Lymphocytes % (manual) 18 (10.0-50.0); Monocytes % (manual) 3 (0-12)
[2022-08-13] MEDS: OXYCODONE W/ ACETAMINOPHEN 5/325MG TABLET PO PRN ×2 (08:06→20:29)
[2022-08-13] MEDS: PANTOPRAZOLE 40 MG/10 ML VIAL INJ IV SCH ×2 (09:30→21:52)
[2022-08-13] MEDS: DOCUSATE SOD 100 MG CAP PO SCH ×2 (09:30→21:52)
[2022-08-13] MEDS: AMITRIPTYLINE HCL 10 MG TAB PO SCH (09:31)
[2022-08-13] MEDS: ENOXAPARIN SOD 40 MG/0.4 ML SYRINGE SC SCH (09:33)
[2022-08-13] MEDS: NICOTINE 21MG/24 HR TOPICAL PATCH TD SCH (09:35)
[2022-08-13] MEDS: OCTREOTIDE ACETATE 500 MCG in SODIUM CHL 0.9% 99 ML IV SCH (09:36)
[2022-08-13] MEDS ORDERED: PANTOPRAZOLE 40 MG/10 ML VIAL INJ IV SCH (10:00)
[2022-08-13 12:08] LABS: Basophils # (auto) 0 10 ^3/uL (0-0.2); Eosinophils # (auto) 0 10 ^3/uL (0-0.8); Lymphocytes # (auto) 0.7 10 ^3/uL (0.4-5.4); Monocytes # (auto) 0.4 10 ^3/uL (0-1.3); White Blood Cell 8.2 10^3/uL (4.4-10.8)
[2022-08-13 12:09] LABS: Basophils % (auto) 0.4 % (0.0-2.0); Hematocrit 29.2 % (41.0-53.0); Hemoglobin 9.5 g/dL (13.5-17.5); Lymphocytes % (auto) 8.2 % (10.0-50.0); Mean Corpuscular Hemoglobin 22.9 pg (28.0-32.0); Mean Corpuscular Hgb Conc. 32.6 g/dL (32.0-36.0); Mean Corpuscular Volume 70.2 fL (80.0-100.0); Monocytes % (auto) 4.5 % (0.0-12.0); Neutrophils # (auto) 7.1 10 ^3/uL (1.6-8.6); Neutrophils % (auto) 86.9 % (37.0-80.0); Nucleated Red Blood Cells % 0.5 %; Red Blood Cells 4.16 10^6/uL (4.5-5.90)
[2022-08-13 12:14] LABS: Red Cell Distribution Width 24.1 % (11.8-14.3)
[2022-08-13] MEDS ORDERED: HYDROmorphone HCL 2 MG/ML VL/or syr IV PRN (12:15)
[2022-08-13] MEDS ORDERED: fentaNYL CITRATE 100 MCG/2 ML VL ONE (14:32)
[2022-08-13] MEDS ORDERED: MIDAZOLAM HCL 2MG/2ML 2ml VIAL (1mg/ml) ONE (14:32)
[2022-08-13] MEDS ORDERED: ONDANSETRON HCL 4 MG/2 ML VIAL ONE (14:33)
[2022-08-13] MEDS ORDERED: GLYCOPYRROLATE 0.2 MG/ML 1ML VIAL ONE (14:33)
[2022-08-13] MEDS ORDERED: PROPOFOL 10 MG/ML 20 ML IV ONE (14:33)
[2022-08-13 18:23] LABS: Basophils # (auto) 0.1 10 ^3/uL (0-0.2); Eosinophils # (auto) 0 10 ^3/uL (0-0.8); Hemoglobin 10.4 g/dL (13.5-17.5); Monocytes # (auto) 0.5 10 ^3/uL (0-1.3)
[2022-08-13 18:24] LABS: Basophils % (auto) 1.3 % (0.0-2.0); Hematocrit 31.9 % (41.0-53.0); Lymphocytes # (auto) 0.5 10 ^3/uL (0.4-5.4); Lymphocytes % (auto) 4.6 % (10.0-50.0); Mean Corpuscular Hemoglobin 23.2 pg (28.0-32.0); Mean Corpuscular Hgb Conc. 32.5 g/dL (32.0-36.0); Mean Corpuscular Volume 71.2 fL (80.0-100.0); Neutrophils # (auto) 9.4 10 ^3/uL (1.6-8.6); Neutrophils % (auto) 89.1 % (37.0-80.0); Nucleated Red Blood Cells % 0.3 %; Red Blood Cells 4.48 10^6/uL (4.5-5.90); White Blood Cell 10.5 10^3/uL (4.4-10.8)
[2022-08-13] MEDS: risperiDONE 1 MG TAB PO SCH (21:52)
[2022-08-14] VITALS (18 sets, daily range): BP systolic 77–129; BP diastolic 31–77
[2022-08-14] MEDS: OXYCODONE W/ ACETAMINOPHEN 5/325MG TABLET PO PRN (02:48)
[2022-08-14] MEDS: ONDANSETRON HCL 4 MG/2 ML VIAL IV PRN ×2 (02:54→13:29)
[2022-08-14] MEDS: HYDROmorphone HCL 2 MG/ML VL/or syr IV PRN ×4 (03:48→17:38)
[2022-08-14] MEDS: OCTREOTIDE ACETATE 500 MCG in SODIUM CHL 0.9% 99 ML IV SCH ×3 (05:30→15:30)
[2022-08-14] MEDS: SUCRALFATE 1 GM TAB PO SCH ×4 (06:25→22:00)
[2022-08-14] MEDS: DOCUSATE SOD 100 MG CAP PO SCH ×2 (09:52→22:00)
[2022-08-14] MEDS: PANTOPRAZOLE 40 MG/10 ML VIAL INJ IV SCH ×2 (09:52→22:00)
[2022-08-14] MEDS: AMITRIPTYLINE HCL 10 MG TAB PO SCH (09:53)
[2022-08-14] MEDS: ENOXAPARIN SOD 40 MG/0.4 ML SYRINGE SC SCH (09:53)
[2022-08-14] MEDS: NICOTINE 21MG/24 HR TOPICAL PATCH TD SCH (10:00)
[2022-08-14] MEDS ORDERED: ETOMIDATE (2MG/ML) 20ML VIAL IV ONE (21:06)
[2022-08-14] MEDS ORDERED: SUCCINYLCHOLINE CHLORIDE 20 MG/ML 10ML VIAL IV ONE (21:07)
[2022-08-14] MEDS: SODIUM CHLORIDE 0.9% 1,000 ML IV SCH ×2 (21:15→23:55)
[2022-08-14] MEDS ORDERED: NOREPINEPHRINE 8 MG/250ML KIT 250 ML IV SCH (21:30)
[2022-08-14] MEDS ORDERED: MIDAZOLAM DRIP 50 mg/50mL 50 ML IV SCH (21:45)
[2022-08-14] MEDS ORDERED: fentaNYL Drip 2500mCg/250mlNS 250 ML IV SCH (21:45)
[2022-08-14] MEDS ORDERED: SODIUM CHLORIDE 0.9% 1,000 ML IV ONE (21:45)
[2022-08-14] MEDS: risperiDONE 1 MG TAB PO SCH (22:00)
[2022-08-14 22:42] LABS: Red Blood Cells 3.62 10^6/uL (4.5-5.90)
[2022-08-14 22:43] LABS: Hemoglobin 8.1 g/dL (13.5-17.5); Mean Corpuscular Hemoglobin 22.3 pg (28.0-32.0); Mean Corpuscular Hgb Conc. 27.8 g/dL (32.0-36.0); Mean Corpuscular Volume 80.1 fL (80.0-100.0)
[2022-08-14] MEDS ORDERED: SODIUM BICARBONATE 8.4% INJ 50ML SYRINGE ONE (23:12)
[2022-08-14 23:15] LABS: Basophils % (manual) 0 (0.0-2.0); Blast Cells 0; Eosinophils % (manual) 0 (0-7); Metamyelocytes % 0; Promyelocytes % 0; Reactive Lymphocytes 0; White Blood Cell 36.3 10^3/uL (4.4-10.8)
[2022-08-14] MEDS ORDERED: SODIUM BICARBONATE 8.4 % INJ 50ML VIAL IV ONE (23:15)
[2022-08-14] MEDS ORDERED: DEXTROSE 10% 1,000 ML IV ONE (23:45)
[2022-08-15] VITALS (34 sets, daily range): BP systolic 33–111; BP diastolic 13–84
[2022-08-15 00:21] LABS: Albumin 1.3 g/dL (3.4-5.0); BUN/Creatinine Ratio 21.4 (10.0-20.0); Calcium 7.8 mg/dL (8.5-10.1)
[2022-08-15 00:23] LABS: Potassium 6.5 mmol/L (3.5-5.1)
[2022-08-15 00:37] LABS: Bilirubin, Total 1.5 mg/dL (0.2-1.0); Total Protein 4.6 g/dL (6.4-8.2)
[2022-08-15] MEDS: OCTREOTIDE ACETATE 500 MCG in SODIUM CHL 0.9% 99 ML IV SCH (00:51)
[2022-08-15] MEDS ORDERED: CALCIUM GLUC 1,000mg/50ml-NS 50 ML IV ONE (01:06)
[2022-08-15 01:37] LABS: Band Neutrophils % (manual) 50; Lymphocytes % (manual) 4 (10.0-50.0); Monocytes % (manual) 4 (0-12); Myelocytes % 4
[2022-08-15] MEDS ORDERED: PHENYLEPHRINE IV 250 ML IV SCH (06:30)
[2022-08-15] MEDS: SUCRALFATE 1 GM TAB PO SCH (06:49)
[2022-08-15] MEDS ORDERED: VASOPRESSIN 20 UNITS in SODIUM CHL 0.9% 99 ML IV SCH (07:00)
== END 2022-08-15 10:18 | DRG 254 ==
LOC: ER 10:52 → TELE 13:10 → TELE-WESTW 08-13 01:45 → ICU WEST 08-14 21:10
PROVIDERS: ADMIT Nurse Practitioner Family; ATTEND Internal Medicine
PROC: 30233N1 Transfusion of Nonautologous Red Blood Cells into Peripheral Vein, Percutaneous Approach (ICD-10-PCS; principal; 2022-08-12)
PROC: 0DB98ZX Excision of Duodenum, Via Natural or Artificial Opening Endoscopic, Diagnostic (ICD-10-PCS; 2022-08-13)
PROC: 0DB68ZX Excision of Stomach, Via Natural or Artificial Opening Endoscopic, Diagnostic (ICD-10-PCS; 2022-08-13)
PROC: 5A1935Z Respiratory Ventilation, Less than 24 Consecutive Hours (ICD-10-PCS; 2022-08-14)
PROC: 0BH17EZ Insertion of Endotracheal Airway into Trachea, Via Natural or Artificial Opening (ICD-10-PCS; 2022-08-14)
DX: K31.1 Adult hypertrophic pyloric stenosis (principal); J96.00 Acute respiratory failure, unspecified whether with hypoxia or hypercapnia; E43 Unspecified severe protein-calorie malnutrition; R18.8 Other ascites; C78.4 Secondary malignant neoplasm of small intestine; C22.8 Malignant neoplasm of liver, primary, unspecified as to type; K74.60 Unspecified cirrhosis of liver; J44.9 Chronic obstructive pulmonary disease, unspecified; Z99.81 Dependence on supplemental oxygen; D64.9 Anemia, unspecified; F10.10 Alcohol abuse, uncomplicated; G89.29 Other chronic pain; Z20.822 Contact with and (suspected) exposure to COVID-19; K31.84 Gastroparesis; K44.9 Diaphragmatic hernia without obstruction or gangrene; F17.210 Nicotine dependence, cigarettes, uncomplicated; F32.A Depression, unspecified; I10 Essential (primary) hypertension; M19.90 Unspecified osteoarthritis, unspecified site; Z88.8 Allergy status to other drugs, medicaments and biological substances; Z87.11 Personal history of peptic ulcer disease; Z82.49 Family history of ischemic heart disease and other diseases of the circulatory system; Z85.05 Personal history of malignant neoplasm of liver; K21.9 Gastro-esophageal reflux disease without esophagitis
CPT/HCPCS: 36415; 36600; 71045; 74177; 80053; 80307; 82140; 82805; 82962; 83540; 83550; 83735; 83880; 84484; 85007; 85025; 85027; 86850; 86900; 86901; 86920; 87081; 87426; 93005; 93970; 94002; 94003; C9113; G0378; J0330; J2250; J2405; J2704